=== PATIENT | female | born 1960 | race Caucasian/White ===

== ENCOUNTER 2017-09-16 19:06 | Inpatient (IN) | payer MEDICARE, OTHER ==
[~2017-09-16] VITALS: Ht 157.4 cm; Wt 94.1 kg
--- NOTE | ~2017-09-16 | PR ---
[place], [place] PROGRESS NOTE NAME: MARYANNE AGUILAR UNIT #: [id number] ROOM: 310 DOCTOR: SELAM AZUL MD BIRTHDATE: [birth year] DOS: 09/19/2017 CHIEF COMPLAINT: "I feel a little bit better, but look at my hands, they have been shaking like this even before I came to the hospital." SUMMARY OF THE VISIT: The patient was then interviewed in the dining area. She had eaten her entire breakfast and was sitting there, interacting with female peers and watching television. She engaged readily in conversation, reporting that she did sleep better last night and she is feeling slightly better. She does notice bilateral upper extremity tremors that are pretty noticeable especially when she grabbed her drink and attempted to bring it to her mouth. She reported that these were occurring well before her admission here to the hospital and have been somewhat problematic for her. MENTAL STATUS: She is alert and oriented. Mood does seem to be trending towards euthymia. Affect is more appropriate. There are no symptoms of hypomania or moni. There are no overt auditory or visual hallucinations. Memory for the most part is intact. PLAN: I will discontinue her hydroxyzine in an attempt to begin to simplify her drug regimen. I will add Artane 2 mg t.i.d. to decrease the tremors and check a valproic acid level in the morning to ensure that it is therapeutic. We will engage in individual and beatty milieu activity with the plan to return to the least restrictive environment when psychiatrically stable. SELAM AZUL MD CM:PNTRANS [id number] SELAM AZUL MD 09/19/17 1446 interface
--- NOTE | ~2017-09-16 | PR ---
[place], [place] PROGRESS NOTE NAME: MARYANNE AGUILAR UNIT #: [id number] ROOM: 310 DOCTOR: SELAM AZUL MD BIRTHDATE: [birth year] DOS: 09/20/2017 CHIEF COMPLAINT: "Will you give me my nerve medicine back when I go back to [facility]." SUMMARY OF THE VISIT: Patient was interviewed in the dining area where she sat with female peers watching television. She stopped and engaged in conversation. She was calm, collected and very much euthymic. She reports she feels 100% better now and does not need the nerve medicine here. She traces a lot of her nerves to the situation there and is requesting that when she goes back to [facility], [facility] because it is quieter there and she is hopeful that that will help her nerves in the long run. She is tolerating the current medication regimen now and did tolerate me discontinuing her nerve medicine without incident. MENTAL STATUS: She is alert and oriented with mild time gaps. She is fairly euthymic. There is no hypomania or moni. There are no overt auditory or visual hallucinations. No delusions, no paranoia. Memory is fully intact. PLAN: Valproic acid level is therapeutic at 80.3. I will maintain her current psychotropic regimen, engage in individual and beatty milieu activity with the plan to return to [facility] when stable. SELAM AZUL MD CM:PNTRANS [id number] SELAM AZUL MD 09/21/17 0048 interface
--- NOTE | ~2017-09-16 | WRIGHTHP ---
[place], [place] PATIENT HISTORY AND PHYSICAL EXAM NAME: MARYANNE AGUILAR UNIT #: [id number] ROOM: 310 DOCTOR: SELAM GÓMEZ MD BIRTHDATE: [birth year] DOS: 09/18/2017 CHIEF COMPLAINT: "Oh Dr. Gómez, I had just not been doing well." HISTORY OF PRESENT ILLNESS: This is a 57-year-old white female known to me from her stay at [facility]. The patient has a lengthy history of bipolar disorder as well as mild mental retardation. The patient has become increasingly more hypomanic or manic at the home, becoming increasingly intrusive, being hyperverbal. She has also been increasingly more agitated and irritable and has made multiple threats to staff, other residents and also herself. She has threatened suicide and has threatened to hurt other residents. Her behavior has become so problematic at the group home that the staff there fear for her safety and the safety of other residents. Given the severity of her decompensation, it was felt that an inpatient stay was warranted and she was admitted now to rule out organic factors and to attempt to stabilize on medication. PAST MEDICAL HISTORY: Remarkable for bipolar disorder, mild MR, obesity. MENTAL STATUS: Upon admission, the patient is alert and oriented. Mood does seem to be somewhat labile. She is very hyperverbal, almost to the point of pressured, but redirectable. She is somewhat circumstantial in her speech. There are no overt auditory or visual hallucinations. No delusions, no paranoia. Short term memory, intermediate memory and long-term memory are intact. DIAGNOSIS: Bipolar type 1, mixed, and mild mitral regurgitation. PLAN: I will discontinue her Zyprexa given the fact that she is already obese and the Zyprexa will put her at risk for metabolic syndrome. I will start her on Invega 6 mg in the morning and consider switching her to Invega Sustenna to improve compliance. Screening examinations upon admission show her to have a low vitamin D level, so I will treat her with vitamin D 50,000 international units weekly. We will attempt to engage her in individual and beatty milieu activities with the ultimate plan to return back to [facility] when psychiatrically stable. [place], [place] PATIENT HISTORY AND PHYSICAL EXAM NAME: MARYANNE AGUILAR UNIT #: [id number] ROOM: 310 DOCTOR: SELAM GÓMEZ MD BIRTHDATE: [birth year] SELAM GÓMEZ MD CM:HISPHYS:PATIENT HISTORY AND PHYSICAL EXAMINATION 8 SELAM GÓMEZ MD 09/18/17908 interface
--- NOTE | ~2017-09-16 | DS ---
[place], [place] DISCHARGE SUMMARY NAME[id number] UNIT #: [id number] ROOM: 310 DOCTOR: SELAM GÓMEZ MD BIRTHDATE: [birth year] DOS: 09/21/2017 CHIEF COMPLAINT: "Oh Dr. Gómez, I just have not been doing well." HISTORY OF PRESENT ILLNESS: This is a 57-year-old white female known to me from her stay at [facility]. The patient has a lengthy history of bipolar disorder as well as mild mental retardation. The patient has become increasingly more hypomanic and manic at the home, being very intrusive and hyperverbal. She has also been more agitated and irritable and has made multiple threats to hurt staff and other residents there. She most recently has been threatening suicide as well and threatened to hurt other residents before she would hurt herself as well. Her behavior has become so problematic at the alf that the staff there fear for her safety as well as the safety of other residents. She is admitted now to the [facility] to rule out organic factors and attempt to stabilize on medication. PAST MEDICAL HISTORY: Remarkable for bipolar disorder, mild MR and obesity. SUMMARY OF HOSPITAL COURSE: The patient was admitted to the unit where her Zyprexa was discontinued due to ineffectiveness and she was started on Invega 6 mg in the morning. Routine screening examination showed her to have a low vitamin D level, so she was started on vitamin D 50,000 International Units weekly. A check of her valproic acid level showed her a valproic acid level to be therapeutic at 80.3. She tolerated the Invega well and it did have a rather rapid and robust effect. She did develop some mild upper extremity tremor from it and Artane 2 mg 3 times daily was added to offset the extrapyramidal symptoms. This worked rather rapidly. She had a very rapid and robust response from the medicines. Sleep and appetite normalized. She became very pleasant and cooperative. She engaged readily in activities and group therapy. She voiced positive plans for returning back to [facility]. She convincingly denied medication side effects as well as convincingly denied suicidal thoughts, homicidal thoughts or any self-injurious thoughts. The patient was discharged then back to [facility] where I will follow her upon her readmission there. MENTAL STATUS AT DISCHARGE: The patient was alert and oriented to person, place, and time. Mood was euthymic. Affect appropriate. There were no symptoms of moni or hypomania. There were no overt auditory or visual hallucinations. No delusions were voiced. No paranoia was present. Short, intermediate, and long-term memory were grossly intact. DIAGNOSES AT DISCHARGE: Schizoaffective disorder and mild mental retardation. PLAN: All of her prescriptions have been E-scribed to [facility], her institutional pharmacy. She will return to [facility]. I will follow her upon her readmission there. [place], [place] DISCHARGE SUMMARY NAME: MARYANNE AGUILAR UNIT #: [id number] ROOM: 310 DOCTOR: SELAM GÓMEZ MD BIRTHDATE: [birth year] SELAM GÓMEZ MD CM:DISCHARG 3 7 SELAM GÓMEZ MD 09/21/17837 interface
[2017-09-17] MEDS ORDERED: COLACE100 MG PO (04:19)
[2017-09-17] MEDS ORDERED: DEPAKOTE DR500 MG PO ×2 (04:20→04:21)
[2017-09-17] MEDS ORDERED: ZYPREXA10 M1 PO ×2 (04:20→04:22)
[2017-09-17] MEDS ORDERED: REMERON15 M2 PO (04:23)
[2017-09-17] MEDS ORDERED: VISTARIL50 MG PO (04:25)
[2017-09-17 12:35] VITALS: BP 126/58
[2017-09-17 12:53] VITALS: BP 126/58
[2017-09-17 20:00] VITALS: BP 125/62
[2017-09-18 05:47] LABS: BASO # 0.1 10*3/uL (0.0-0.1); EOS # 0.7 10*3/uL (0.0-0.4); EOS % 12.2 % (1.0-4.0); HEMATOCRIT 40.8 % (37.0-47.0); LYMPH # 2.3 10*3/uL (1.3-4.4); LYMPH % 39.4 % (27.0-41.0); MEAN CELL VOLUME 89.5 fl (81.0-99.0); MEAN CORPUSCULAR HGB 28.5 pg (27.0-31.0); MEAN CORPUSCULAR HGB CONC 31.9 g/dl (33.0-37.0); MEAN PLATELET VOLUME 11.9 fl (9.6-12.3); MONO # 0.7 10*3/uL (0.1-1.0); MONO % 11.4 % (3.0-9.0); NEUT # 2.1 10*3/uL (2.3-7.9); NEUT % 35.5 % (47.0-73.0); PLATELET COUNT AUTOMATED 169 10*3/uL (130-400); RED BLOOD COUNT 4.56 10*6/uL (4.10-5.10); RED CELL DISTRI WIDTH 13.8 % (0-14.5); WHITE BLOOD COUNT 5.9 10*3/uL (4.8-10.8)
[2017-09-18 05:49] LABS: ALBUMIN 3.3 gm/dl (3.1-4.5); ALKALINE PHOSPHATASE 72 U/L (45-117); BUN 15 mg/dl (7-24); CHLORIDE 105 mmol/L (98-107); CHOLESTEROL 166 mg/dL (<200); HDL CHOLESTEROL 76 mg/dl (40-60); LDL CHOLESTEROL 75 mg/dL (9-159); POTASSIUM 3.8 mmol/L (3.5-5.1); SGOT/AST 16 IU/L (3-35); SGPT/ALT 27 U/L (12-78); SODIUM 144 mmol/L (136-145); TOTAL PROTEIN 6.7 gm/dL (6.4-8.2); TRIGLYCERIDES 73 mg/dl (<150); VLDL CHOLESTEROL 15 mg/dL (6-40)
[2017-09-18 07:48] LABS: VITAMIN D, 25-HYDROXY 15.9 ng/mL (30-100)
[2017-09-18 07:55] VITALS: BP 133/80
[2017-09-18 11:37] LABS: BILIRUBIN NEGATIVE (NEGATIVE); BLOOD NEGATIVE (NEGATIVE); CLARITY CLEAR (CLEAR); COLOR YELLOW (YELLOW); GLUCOSE NEGATIVE (NEGATIVE); KETONE TRACE (NEGATIVE); LEUKO ESTERASE TRACE (NEGATIVE); NITRITE NEGATIVE (NEGATIVE); PH 6.5 (5.0-9.0)
[2017-09-18 12:40] LABS: BACTERIA 1+; MUCOUS 1+
[2017-09-18 20:00] VITALS: BP 150/87
[2017-09-19 07:55] VITALS: BP 137/78
[2017-09-19 20:03] VITALS: BP 152/84
[2017-09-20 07:57] VITALS: BP 128/77
[2017-09-20 20:00] VITALS: BP 117/78
[2017-09-21] MEDS ORDERED: DIVALPROEX SOD500 MG PO ×2 (07:59)
[2017-09-21] MEDS ORDERED: DIVALPROEX SOD250 MG PO (07:59)
[2017-09-21] MEDS ORDERED: TRIHEXYPHENIDYL2 M3 PO (07:59)
[2017-09-21] MEDS ORDERED: PALIPERIDONE ER6 MG PO (07:59)
[2017-09-21] MEDS ORDERED: Vitamin D PO (07:59)
[2017-09-21] MEDS ORDERED: MIRTAZAPINE15 M2 PO (07:59)
[2017-09-21 08:01] VITALS: BP 147/76
== END 2017-09-21 17:10 | disposition home or self-care (01) | DRG 885 ==
LOC: 3N 19:06
PROVIDERS: Psychiatry & Neurology Psychiatry
DX: F25.9 Schizoaffective disorder, unspecified (principal); N30.00 Acute cystitis without hematuria; F23 Brief psychotic disorder; B95.1 Streptococcus, group B, as the cause of diseases classified elsewhere; F31.60 Bipolar disorder, current episode mixed, unspecified; G25.1 Drug-induced tremor; T43.595A Adverse effect of other antipsychotics and neuroleptics, initial encounter; Y92.238 Other place in hospital as the place of occurrence of the external cause; E66.9 Obesity, unspecified; Z68.37 Body mass index [BMI] 37.0-37.9, adult; I34.0 Nonrheumatic mitral (valve) insufficiency; K59.00 Constipation, unspecified; F79 Unspecified intellectual disabilities; F41.9 Anxiety disorder, unspecified; Z82.5 Family history of asthma and other chronic lower respiratory diseases; Z82.0 Family history of epilepsy and other diseases of the nervous system; Z85.828 Personal history of other malignant neoplasm of skin; Z79.899 Other long term (current) drug therapy

== ENCOUNTER 2017-10-05 15:59 | Inpatient (IN) | payer MEDICARE, OTHER ==
[~2017-10-05] VITALS: Ht 157.4 cm; Wt 93.4 kg
--- NOTE | ~2017-10-05 | WRIGHTHP ---
[place], [place] PATIENT HISTORY AND PHYSICAL EXAM NAME: [id number] UNIT #: [id number] ROOM: 311 DOCTOR: SELAM GÓMEZ MD BIRTHDATE: [birth year] DOS: 10/06/2017 CHIEF COMPLAINT: "I hated there Dr. Gómez, they made me have a roommate." HISTORY OF PRESENT ILLNESS: This is a 57-year-old white female known to me from her previous admission here to the [facility] unit as well as her stay at [facility]. The patient returned back to [facility] after a brief stint here at the hospital. Since her readmission to [facility], the patient has continued to spiral out of control. She has been yelling nonstop, yelling at staff as well as other residents. She has been hitting, kicking, spitting, and biting people. She is making increased demands to have her own room. The usp has attempted to intervene utilizing nonpharmacologic means of intervention as well as p.r.n. intervention, but to no avail. The patient continues to represent a significant harm to self and others and is admitted now to rule out organic factors to stabilize on medication and to engage in individual and beatty milieu activity. PAST MEDICAL HISTORY: Remarkable for mild MR, obesity and a long history of bipolar disorder. MENTAL STATUS: Upon admission, the patient is alert and oriented with some time gaps. Mood seems to be labile. Affect inappropriate. There is a bit of pressured speech noted how much of this is true moni versus her MR is unclear. The patient does not have any auditory or visual hallucinations, delusions or paranoia. Short-term memory has mild gaps, otherwise she is fully intact. DIAGNOSIS: Bipolar type 1 mixed, and mild MR. PLAN: I have already started her on Ativan 1 mg q.i.d. and Geodon 20 mg b.i.d., which I will now increase to 40 mg b.i.d. with a target of 80 mg b.i.d. I will change her Depakote to 500 mg 3 times a day to further attempt to stabilize her mood. Quite frankly I am unclear if this is true bipolar disorder versus a behavioral manifestation of her mental retardation. We will monitor her closely. If this becomes an issue related to MR, we will make certain that the usp put into effect a behavioral management plan to more effectively deal with this type of behavior. We will discharge to the least restrictive environment when psychiatrically stable. [place], [place] PATIENT HISTORY AND PHYSICAL EXAM NAME: MARYANNE AGUILAR UNIT #: [id number] ROOM: [facility] DOCTOR: SELAM GÓMEZ MD BIRTHDATE: [birth year] SELAM GÓMEZ MD CM:HISPHYS:PATIENT HISTORY AND PHYSICAL EXAMINATION [id number] SELAM GÓMEZ MD 10/06/17 1027 interface
--- NOTE | ~2017-10-05 | PR ---
[place], [place] PROGRESS NOTE NAME: [facility]ILAR [id number] UNIT #: [id number] ROOM: 311 DOCTOR: SELAM GÓMEZ MD BIRTHDATE: [birth year] DOS: 10/07/2017 CHIEF COMPLAINT: "Dr. Gómez, am I going to be going soon." SUMMARY OF THE VISIT: The patient was interviewed in the dining area. She was bright, pleasant upon approach, which she has been since she has been here. Of note, she has not exhibited the mood lability, the yelling, the screaming, the spitting, the hitting, the kicking and the behaviors that led to her being readmitted. I truly believe that the behaviors that were occurring at [facility] were nothing but volitional on her part because she wanted to leave the facility. I confronted her on her behavior and did discuss with her how the process works and that it needed to be clearly documented in her charts that her behaviors were under control for her effort to be going to another facility. She nodded in agreement. MENTAL STATUS: She is alert and oriented with some time gaps. Mood was fairly euthymic. Affect appropriate. There are no symptoms of hypomania or moni. There were no overt auditory or visual hallucinations noted. Short-term memory has mild gaps, otherwise she is intact. PLAN: I will check a valproic acid level in the morning to ensure that it is therapeutic. I will raise her Geodon from 40 mg twice a day to 80 mg twice a day. Continue to support and monitor. My plan is to discharge her back to [facility] on . Again, I would reiterate that her behaviors seem exactly that, volitional behavior that she was doing in order to get out of [facility] and come back to the hospital. Her behavior here has been exemplary. She has not been showing mood lability. She has not been showing any psychosis and she has not been agitated or aggressive in any shape or manor. I think it is best at this point that she return to [facility], set up a behavioral management plan with her there to prevent her from continuing to manipulate the system. SELAM GÓMEZ MD CM:YESSENIA [id number] SELAM GÓMEZ MD 10/07/17 1239 interface
--- NOTE | ~2017-10-05 | DS ---
[place], [place] DISCHARGE SUMMARY NAME: MARYANNE AGUILAR [facility] #: [id number] UNIT #: [id number] ROOM: 311 DOCTOR: SELAM AZUL MD BIRTHDATE: [birth year] DOS: 10/08/2017 CHIEF COMPLAINT: "I hated that place Dr. Azul, they made me have a roommate" HISTORY OF PRESENT ILLNESS: This is a 57-year-old white female known to me from a previous admission here to the [facility] unit as well as her stay at [facility]. The patient recently returned back to [facility] and had a brief stint there before being readmitted to the hospital. Since her readmission to [facility], she has continued to spiral out of control. Per their report, she has been yelling nonstop. She has been throwing things. She has been breaking things. She has been hitting, kicking, spitting and biting people. She is making increased demands to have her own room and when she does not get her way, she throws a temper tantrum. They have attempted to utilize nonpharmacologic means to intervene unsuccessfully and even p.r.n. intervention has been unsuccessful. She is readmitted now to rule out any organic factors, to rule out the possibility of psychosis and moni, to engage in individual and beatty milieu activity, returning back to [facility] or similar placement when stable. PAST MEDICAL HISTORY: Remarkable for mild mental retardation, obesity and now a questionable history of bipolar disorder. SUMMARY OF HOSPITAL COURSE: The patient was admitted to the unit where she was started on Geodon 40 mg twice daily. She was maintained on Depakote, but the dose was adjusted to 500 mg 3 times daily. Of note, immediately upon entering the unit, the patient was bright, pleasant and cooperative. She did not exhibit moni, hypomania. There were no auditory or visual hallucinations. There was no paranoia. There were no delusions. The patient was very pleasant throughout her early part of her stay enjoying the unit milieu and the attention that was given . The minute we began talking about discharge, she began to escalate and made threats and predicted that she would act out and did so. When we very sternly and forcefully redirected, she would redirect well and stay in control. Of note was that this was all volitional. There was no symptom suggestive of moni or psychosis. There was no depression. Her behavior was totally under her control and she was able to self-redirect when need be, or redirected with our tirado redirection. The patient was discharged back to [facility] to have further followup and I would recommend that a psychologist be consulted to set up a behavioral management plan to help her be able to meet the demands that were met for her. MENTAL STATUS AT DISCHARGE: The patient was alert and oriented to person, place, and time. Mood was fairly euthymic and when it was not, it was under her control. There was no symptom suggestive of depression. There were no neurovegetative symptoms. Sleep and appetite were normal. There was no hypomania or moni. Speech rate and pattern for the most part were normal. There were no auditory or visual hallucinations. No delusions, no paranoia. Memory for the most part was intact. FINAL DIAGNOSES: Intermittent explosive disorder, mild mental retardation. [place], [place] DISCHARGE SUMMARY NAME: MARYANNE AGUILAR [facility] #: [id number] UNIT #: [id number] ROOM: 311 DOCTOR: SELAM AZUL MD BIRTHDATE: [birth year] PLAN: The patient will be sent back to [facility] where I would again recommend that a very strong behavioral plan be implemented. I think the current system is allowing her to run rampant and she is able then to pretty much control the situation. I would strongly recommend that future hospitalizations are limited as this is further feeding in to her behavior. At this point, she will be returned back to [facility]. All of her prescriptions have been submitted to [facility], her institutional pharmacy. SELAM AZUL MD CM:DISCHARG [id number] SELAM AZUL MD 10/08/1715 interface
[~2017-10-05 15:59] MED LIST: COLACE100 MG PO; DEPAKOTE DR500 MG PO; DIVALPROEX SOD250 MG PO; DIVALPROEX SOD500 MG PO; MIRTAZAPINE15 M2 PO; PALIPERIDONE ER6 MG PO; REMERON15 M2 PO; TRIHEXYPHENIDYL2 M3 PO; VISTARIL50 MG PO; Vitamin D PO; ZYPREXA10 M1 PO
[2017-10-05] MEDS ORDERED: TYLENOL325 M2 PO (16:13)
[2017-10-05] MEDS ORDERED: ATIVAN1 MG PO (16:14)
[2017-10-05] MEDS ORDERED: ATIVAN2 MG/1 ML IM (16:14)
[2017-10-05] MEDS ORDERED: DULCOLAX5 M1 PO (16:16)
[2017-10-05] MEDS ORDERED: CHLORPROMAZINE50 M1 PO (16:17)
[2017-10-05] MEDS ORDERED: GEODON20 MG IM (16:17)
[2017-10-05] MEDS ORDERED: WATER FOR INJECT5 ML IM (16:18)
[2017-10-05] MEDS ORDERED: GERI-TUSSIN DM473 ML PO (16:21)
[2017-10-05] MEDS ORDERED: MOM30 M1 PO (16:22)
[2017-10-05] MEDS ORDERED: MAALOX ADVANCE355 M1 PO (16:22)
[2017-10-05] MEDS ORDERED: MIRALAX POWDER17 G1 PO (16:23)
[2017-10-05 18:08] VITALS: BP 146/82
[2017-10-05 20:00] VITALS: BP 145/66
[2017-10-06 07:38] LABS: BASO # 0.1 10*3/uL (0.0-0.1); EOS # 0.3 10*3/uL (0.0-0.4); EOS % 4.9 % (1.0-4.0); HEMATOCRIT 42.5 % (37.0-47.0); HEMOGLOBIN 13.4 g/dl (12.0-16.0); MEAN CELL VOLUME 90.4 fl (81.0-99.0); MEAN CORPUSCULAR HGB 28.5 pg (27.0-31.0); MEAN CORPUSCULAR HGB CONC 31.5 g/dl (33.0-37.0); MEAN PLATELET VOLUME 12.4 fl (9.6-12.3); MONO # 0.6 10*3/uL (0.1-1.0); MONO % 8.6 % (3.0-9.0); NEUT # 2.8 10*3/uL (2.3-7.9); NEUT % 41.2 % (47.0-73.0); PLATELET COUNT AUTOMATED 200 10*3/uL (130-400); RED CELL DISTRI WIDTH 14.1 % (0-14.5); WHITE BLOOD COUNT 6.8 10*3/uL (4.8-10.8)
[2017-10-06 07:54] VITALS: BP 111/66
[2017-10-06 08:06] LABS: ALBUMIN 3.5 gm/dl (3.1-4.5); ALKALINE PHOSPHATASE 65 U/L (45-117); BUN 14 mg/dl (7-24); CHLORIDE 106 mmol/L (98-107); CHOLESTEROL 177 mg/dL (<200); CREATININE 0.91 mg/dL (0.55-1.02); HDL CHOLESTEROL 79 mg/dl (40-60); LDL CHOLESTEROL 84 mg/dL (9-159); SGOT/AST 10 IU/L (3-35); SGPT/ALT 17 U/L (12-78); SODIUM 144 mmol/L (136-145); TRIGLYCERIDES 71 mg/dl (<150); VLDL CHOLESTEROL 14 mg/dL (6-40)
[2017-10-06 09:43] LABS: VITAMIN D, 25-HYDROXY 31.9 ng/mL (30-100)
[2017-10-06 20:00] VITALS: BP 119/79
[2017-10-07 07:59] VITALS: BP 129/74
[2017-10-07 20:00] VITALS: BP 123/56
[2017-10-08 07:47] VITALS: BP 124/76
[2017-10-08] MEDS ORDERED: MIRTAZAPINE15 M2 PO (08:43)
[2017-10-08] MEDS ORDERED: TRIHEXYPHENIDYL2 M3 PO (08:43)
[2017-10-08] MEDS ORDERED: THORAZINE25 MG PO (08:43)
[2017-10-08] MEDS ORDERED: DIVALPROEX SOD500 MG PO (08:43)
[2017-10-08] MEDS ORDERED: LORAZEPAM2 MG PO (08:48)
[2017-10-08] MEDS ORDERED: ZIPRASIDONE HCL80 M1 PO (08:55)
== END 2017-10-08 15:49 | disposition home or self-care (01) | DRG 884 ==
LOC: 3N 15:59
PROVIDERS: Psychiatry & Neurology Psychiatry
DX: F70 Mild intellectual disabilities (principal); E66.9 Obesity, unspecified; F23 Brief psychotic disorder; F63.81 Intermittent explosive disorder; F31.60 Bipolar disorder, current episode mixed, unspecified; Z82.5 Family history of asthma and other chronic lower respiratory diseases; Z79.899 Other long term (current) drug therapy

== ENCOUNTER 2018-01-01 19:52 | Inpatient (IN) | payer MEDICARE, OTHER ==
[~2018-01-01] VITALS: Ht 157.4 cm; Wt 97.5 kg
--- NOTE | ~2018-01-01 | DS ---
[place], [place] DISCHARGE SUMMARY NAME[id number] UN[facility] #: [id number] ROOM: 317 DOCTOR: SELAM AZUL MD BIRTHDATE: [birth year] DOS: 01/07/2018 CHIEF COMPLAINT: "I need to get more money, they would not give me my money, so I got upset." HISTORY OF PRESENT ILLNESS: This is a 57-year-old white female well known to me from her previous admission here to the [facility] as well as her stay at [facility]. After her last psychiatric hospitalization here, the patient returned to [facility] briefly. She was later placed into a senior living. At that point in time, she found the senior living to be deplorable and acted out there, resulting in her being hospitalized at [facility] for a lengthy time. After she was restabilized there, she was subsequently discharged to [facility]. She was only at [facility] a short time when she once again acted out becoming verbally and physically aggressive toward staff and other residents. Because of this significant risk for harm to self and others, the patient was readmitted now to the [facility] to further evaluate, stabilize on medication and determine the least restrictive environment. Most recently, she has been prescribed Depakote 500 mg b.i.d. and 1250 mg at bedtime, Remeron 15 mg at bedtime, BuSpar 10 mg 3 times a day, Geodon 80 mg 3 times a day, Ativan 1 mg 3 times a day, Vistaril 50 mg 3 times a day and Zyprexa 10 mg twice daily. Despite this plethora of pharmacologic management, the patient continues to spiral out of control. As mentioned previously, she is admitted to the [facility] to rule out any organic factors, to stabilize on medication, returning to the least restrictive environment when psychiatrically stable. PAST MEDICAL HISTORY: Remarkable for an ovarian cyst, congestive heart failure and appendicitis. SOCIAL HISTORY: The patient has no history of drug or alcohol abuse. She does not smoke cigarettes. STRENGTHS: The patient is ambulatory and has good verbal skills. SUMMARY OF HOSPITAL COURSE: The patient was admitted to the unit where screening examinations revealed her to have an elevated serum ammonia level of 70, so she was started on Chronulac 20 grams twice daily. Despite having a Depakote level that was high therapeutic at 115.6, she continued to show symptoms. For this reason, Depakote was discontinued, Remeron was discontinued, BuSpar was discontinued, Geodon was discontinued, Zyprexa was discontinued, Vistaril was discontinued, Ativan was increased to 1 mg 4 times a day and she was started on Thorazine 50 mg 3 times a day, subsequently increasing to 50 mg 4 times a day. Invega 6 mg in the morning was added also as an antipsychotic that would help stabilize mood. With this simplified drug regimen, the patient's behavior improved. She no longer became wildly labile, she was not making threats to others and she had improved sufficiently to return to [facility]. MENTAL STATUS AT DISCHARGE: The patient is alert and oriented. Mood does seem to be more euthymic. Affect is more appropriate. There is no moni, hypomania [place], [place] DISCHARGE SUMMARY NAME: MARYANNE AGUILAR [facility] #: [id number] UNIT #: [id number] ROOM: [facility] DOCTOR: SELAM AZUL MD BIRTHDATE: [birth year] or psychosis. Memory for the most part is intact. DISCHARGE DIAGNOSIS: Schizoaffective disorder. PLAN: The patient will be admitted to [facility]. She is medically stable, psychiatrically stable and her biopsychosocial needs will adequately being met by the facility. I would suggest that the facility psychologist be consulted immediately on this case to help set up a behavioral management plan to help her control her behaviors. I will follow her upon her admission to [facility]. SELAM AZUL MD CM:DISCHARG SELAM AZUL MD 01/07/1846 interface
--- NOTE | ~2018-01-01 | WRIGHTHP ---
[place], [place] PATIENT HISTORY AND PHYSICAL EXAM NAME: MARYANNE AGUILAR UNIT #: [id number] ROOM: 317 DOCTOR: SELAM AZUL MD BIRTHDATE: [birth year] DOS: 01/03/2018 PSYCHIATRIC EVALUATION CHIEF COMPLAINT: "I needed to get more money; they wouldn't give me money, so I got upset." HISTORY OF PRESENT ILLNESS: This is a 57-year-old white female known to me from a previous admission here to the [facility] as well as her stay at [facility]. After her last psychiatric hospitalization, the patient returned to [facility]; however, she was later placed into a care home. She found the care home absolutely deplorable and acted out there, resulting in her being hospitalized at [facility] for some time. When she was stabilized there, the patient was then subsequently discharged back into a prison, this time [facility]. Most recently, she has been on a complicated cocktail of Depakote 500 mg b.i.d. and 1250 mg at bedtime, Remeron 15 mg at bedtime, BuSpar 10 mg 3 times daily, Geodon 80 mg twice daily, Zyprexa 10 mg twice daily, Ativan 1 mg 3 times daily, Vistaril 50 mg 3 times daily. Despite that plethora of psychotropic medication, the patient continued to exhibit marked mood lability. She has been verbally and physically threatening to staff and other patients. She has been wildly out of control, putting herself and others at risk for harm. She is subsequently admitted now to rule out organic factors, to attempt to stabilize on medication, returning then to the least restrictive environment when stable. PAST MEDICAL HISTORY: Remarkable for history of ovarian cyst, heart failure and appendicitis. The patient has no history of substance abuse. She does not smoke cigarettes, nor does she drink alcohol. STRENGTHS: The patient is ambulatory and has good verbal skills. MENTAL STATUS: The patient is alert and oriented with time gaps. Mood does seem to be wildly labile. Affect is inappropriate. She jumps from topic to topic and has a hard time staying focused. She endorses positive suicidal and homicidal ideation. There are no gross psychotic symptoms. Memory for the most part is intact. DIAGNOSIS: Schizoaffective disorder. PLAN: I have dramatically changed her medication regimen. Despite being on these medicines, she is still symptomatic. Her valproic acid level is therapeutic. In fact, high therapeutic at 115.6, so I have discontinued the Depakote. Her serum ammonia level is elevated to 70. Whether this is on the basis of the Depakote alone or other factors it is unclear. I have discontinued her BuSpar, her Remeron, her Vistaril, her Geodon and Zyprexa, instead I have maintained her on Ativan 1 mg t.i.d., which I will now increase to 1 mg 4 times a day. I will increase her Thorazine to 50 mg 4 times a day. The hospitalists have started her on very low dose lactulose. I will go ahead and increase this to 30 grams b.i.d. in an attempt to bring the serum ammonia level down. We will keep her on Invega and consider utilizing an Invega Sustenna injection to [place], [place] PATIENT HISTORY AND PHYSICAL EXAM NAME: MARYANNE AGUILAR UNIT #: [id number] ROOM: [facility] DOCTOR: SELAM AZUL MD BIRTHDATE: [birth year] improve compliance. We will engage her in individual and beatty milieu activity with the plan to return to the least restrictive environment when stable. SELAM AZUL MD CM:HISPHYS:PATIENT HISTORY AND PHYSICAL EXAMINATION [id number] SELAM AZUL MD 01/03/18 1125 interface
--- NOTE | ~2018-01-01 | PR ---
[place], [place] PROGRESS NOTE NAME: MARYANNE AGUILAR UNIT #: [id number] ROOM: 317 DOCTOR: PHUONG FROST DO BIRTHDATE: [birth year] DOS: 01/05/2018 CHIEF COMPLAINT: "I want to go home, when am I going home?" SUMMARY OF VISIT: The patient is a 57-year-old female who was admitted to the [facility] for schizoaffective disorder, currently on hospital day #3 with persistent anxiety, but improved mood. The patient was readily engaged in conversation and was interviewed in the dining room. She reports she likes her current housing situation, but is willing to try a new facility. She was concerned and anxious about someone stealing her stuff at . She was reassured that we would do whatever was possible to ensure that her possessions would remain with her during her move to a new facility. She voiced understanding and did not voice any other complaints. MENTAL STATUS EXAMINATION: The patient is alert and oriented to person and place. Her mood is improved; however, she appears to be anxious. There are gaps in her short-term memory, which have been improving over time. PLAN: 1. Continue psychotropic regimen as the patient is currently tolerating this therapy well. 2. Lactulose was increased to 30 grams p.o. b.i.d. Hospitalist internal medicine team is managing all other medical conditions. 3. Disposition; the patient to be discharged 01/07/2018 to [facility] per guardian request. We will continue to engage the patient in individual and beatty milieu activity, returning to the least restrictive environment when psychiatrically stable. Phuong Frost, DO SELAM AZUL MD CM:PNTRANS 23 PHUONG FROST DO 01/05/182021 interface
--- NOTE | ~2018-01-01 | PR ---
[place], [place] PROGRESS NOTE NAME: MARYANNE AGUILAR UNIT #: [id number] ROOM: 317 DOCTOR: PHUONG FROST DO BIRTHDATE: [birth year] DOS: 01/06/2018 CHIEF COMPLAINT: "They are going to steal my blanket." SUMMARY OF VISIT: The patient is a 57-year-old female who was admitted to the [facility] for schizoaffective disorder, currently on hospital day #4 with persistent anxiety and volatile mood. This morning, patient was sitting in her room when we attempted to engage the patient in conversation. She was sitting in a chair with her index fingers resting on her temples with her head down as she stared to the floor. We greeted her; however, she did not make eye contact with us and was nonverbal. She was unwilling to engage in conversation and we left the room. The patient did not seem to be in any distress at that time. A second attempt was made to engage the patient in conversation. She was sitting at a table in the dining room. I greeted her and she resumed to demonstrate an offensive gesture. She raised her middle finger indicating that she did not want to talk at that time. A third attempt was made later that day when the patient was being assessed by the internal medicine hospitalist resident. At that point, the patient said "Dr. Azul is a liar." The resident asked if she was able to speak with Dr. Azul today as she was stating that she wanted to kill herself. The patient stated at that time that "Dr. Azul is not going to do anything for me." At that point, I entered the room. The patient was tearful and lying in bed. She indicated that she was anxious about the facility stealing her belongings. I reassured her that we would do whatever would be possible to assist in her transfer to the longterm facility. The patient continues to be paranoid and anxious regarding discharge for tomorrow. Also, this morning, patient was noted to be yelling, slamming doors and being combative with nursing staff. She said she was acting out and was entitled to do so. MENTAL STATUS EXAMINATION: The patient is alert and oriented to person, place and time. Her mood is volatile. She continues to be anxious. She is tearful. Her short-term memory is intact. Her affect is depressed. She continues to demonstrate staff splitting amongst nursing staff and the medical team. PLAN: 1. We will continue psychotropic regimen as the patient is tolerating this therapy well without side effects. 2. The patient currently on lactulose 30 grams p.o. b.i.d. Hospitalist internal medicine team is managing medical condition at this time. 3. Disposition, the patient is to be discharged likely tomorrow, , January 07 to [facility]. Request for transport has been made. We will continue to engage the patient in individual and beatty milieu activity, returning to the least restrictive environment when psychiatrically stable. Phuong Frost DO [place], [place] PROGRESS NOTE NAME: MARYANNE AGUILAR UNIT #: [id number] ROOM: 317 DOCTOR: PHUONG FROST DO BIRTHDATE: [birth year] SELAM AZUL MD CM:YESSENIA [id number] PHUONG FROST DO 01/06/18 1258 interface
--- NOTE | ~2018-01-01 | PR ---
[place], [place] PROGRESS NOTE NAME: MARYANNE AGUILAR UNIT #: [id number] ROOM: 317 DOCTOR: SELAM AZUL MD BIRTHDATE: [birth year] DOS: 01/04/2018 CHIEF COMPLAINT: "I like it at [place], I want to go back, just keep me away from that one man." SUMMARY OF THE VISIT: The patient was interviewed in the dining area. She continues to be rather loud and intrusive, jumping from topic to topic. I did redirect and she did calm eventually. She is tolerating the current medications well. I see no sedation, somnolence, extrapyramidal symptoms or tardive dyskinesia. MENTAL STATUS: She is alert and oriented with time gaps. Mood does seem to be trending towards euthymia. Affect is more appropriate. There is no moni, hypomania or psychosis. Short term memory has gaps, otherwise she is intact. PLAN: I will maintain her current psychotropic regimen, engage in individual and beatty milieu activity, returning to the least restrictive environment when psychiatrically stable. SELAM AZUL MD CM:PNTRANS [id number] SELAM AZUL MD 01/04/18 1015 interface
[~2018-01-01 19:52] MED LIST changes: +ATIVAN1 MG PO; +ATIVAN2 MG/1 ML IM; +CHLORPROMAZINE50 M1 PO; +DULCOLAX5 M1 PO; +GEODON20 MG PO; +GERI-TUSSIN DM473 ML PO; +LORAZEPAM2 MG PO; +MAALOX ADVANCE355 M1 PO; +MIRALAX POWDER17 G1 PO; +MOM30 M1 PO; +THORAZINE25 MG PO; +TYLENOL325 M2 PO; +WATER FOR INJECT5 ML IM; +ZIPRASIDONE HCL80 M1 PO
[2018-01-01] MEDS ORDERED: DEPAKOTE DR500 MG PO ×2 (20:51→21:00)
[2018-01-01] MEDS ORDERED: BUSPIRONE10 MG PO (20:59)
[2018-01-01] MEDS ORDERED: ZYPREXA10 M1 PO (21:03)
[2018-01-01] MEDS ORDERED: ATIVAN1 MG PO (21:11)
[2018-01-01] MEDS ORDERED: BUSPIRONE HCL10 MG PO (21:13)
[2018-01-01] MEDS ORDERED: VISTARIL50 MG PO (21:17)
[2018-01-02] MEDS ORDERED: BUSPAR5 MG PO (13:14)
[2018-01-02] MEDS ORDERED: REMERON15 M2 PO (13:15)
[2018-01-02] MEDS ORDERED: GEODON80 MG PO (13:27)
[2018-01-02] MEDS ORDERED: ZYPREXA10 M1 PO (13:28)
[2018-01-02] MEDS ORDERED: VISTARIL50 MG PO (13:30)
[2018-01-02 15:03] VITALS: BP 138/70
[2018-01-02 15:38] LABS: BASO # 0.1 10*3/uL (0.0-0.1); BASO % 1.1 % (0.0-1.0); EOS # 0.3 10*3/uL (0.0-0.4); EOS % 4.1 % (1.0-4.0); HEMATOCRIT 42.4 % (37.0-47.0); HEMOGLOBIN 13.5 g/dl (12.0-16.0); LYMPH # 2.9 10*3/uL (1.3-4.4); LYMPH % 38.1 % (27.0-41.0); MEAN CELL VOLUME 91.4 fl (81.0-99.0); MEAN CORPUSCULAR HGB 29.1 pg (27.0-31.0); MEAN CORPUSCULAR HGB CONC 31.8 g/dl (33.0-37.0); MEAN PLATELET VOLUME 11.6 fl (9.6-12.3); MONO # 0.7 10*3/uL (0.1-1.0); MONO % 9.4 % (3.0-9.0); NEUT # 3.6 10*3/uL (2.3-7.9); NEUT % 46.9 % (47.0-73.0); PLATELET COUNT AUTOMATED 179 10*3/uL (130-400); RED BLOOD COUNT 4.64 10*6/uL (4.10-5.10); RED CELL DISTRI WIDTH 14.3 % (0-14.5); WHITE BLOOD COUNT 7.6 10*3/uL (4.8-10.8)
[2018-01-02 16:01] LABS: ALBUMIN 3.5 gm/dl (3.1-4.5); CREATININE 1.19 mg/dL (0.55-1.02); POTASSIUM 3.7 mmol/L (3.5-5.1)
[2018-01-02 16:07] LABS: THYROID STIM HORMONE (HS) 2.94 uIU/ml (0.358-4.75)
[2018-01-02 16:09] LABS: VITAMIN D, 25-HYDROXY 25.2 ng/mL (30-100)
[2018-01-02 16:19] LABS: BILIRUBIN NEGATIVE (NEGATIVE); BLOOD NEGATIVE (NEGATIVE); CLARITY CLEAR (CLEAR); COLOR YELLOW (YELLOW); GLUCOSE NEGATIVE (NEGATIVE); KETONE TRACE (NEGATIVE); LEUKO ESTERASE TRACE (NEGATIVE); NITRITE NEGATIVE (NEGATIVE); PH 6.5 (5.0-9.0); SPECIFIC GRAVITY 1.015 (1.005-1.030)
[2018-01-02 16:30] LABS: BACTERIA TRACE
[2018-01-02 16:32] LABS: MUCOUS TRACE
[2018-01-02 20:44] VITALS: BP 132/70
[2018-01-03 06:02] LABS: ALBUMIN 3.2 gm/dl (3.1-4.5); BUN 22 mg/dl (7-24); CHLORIDE 107 mmol/L (98-107); CHOLESTEROL 164 mg/dL (<200); CREATININE 1.05 mg/dL (0.55-1.02); POTASSIUM 4.1 mmol/L (3.5-5.1); SGOT/AST 11 IU/L (3-35); SGPT/ALT 18 U/L (12-78); SODIUM 143 mmol/L (136-145); TOTAL PROTEIN 6.6 gm/dL (6.4-8.2); TRIGLYCERIDES 65 mg/dl (<150); VLDL CHOLESTEROL 13 mg/dL (6-40)
[2018-01-03 06:10] LABS: ALKALINE PHOSPHATASE 61 U/L (45-117); HDL CHOLESTEROL 76 mg/dl (40-60); LDL CHOLESTEROL 75 mg/dL (9-159); VALPROIC ACID (DEPAKENE) 115.6 ug/ml (50-100)
[2018-01-03 07:41] VITALS: BP 148/80
[2018-01-03 20:03] VITALS: BP 148/84
[2018-01-04 07:59] VITALS: BP 139/79
[2018-01-04 20:00] VITALS: BP 129/80
[2018-01-05 07:59] VITALS: BP 122/78
[2018-01-05 20:00] VITALS: BP 115/65
[2018-01-06 07:36] VITALS: BP 142/76
[2018-01-06 19:59] VITALS: BP 132/68
[2018-01-07 07:52] VITALS: BP 118/86
[2018-01-07] MEDS ORDERED: PALIPERIDONE ER6 MG PO (09:04)
[2018-01-07] MEDS ORDERED: THORAZINE25 MG PO (09:04)
[2018-01-07] MEDS ORDERED: LACTULOSE20 GM/30 M PO (09:04)
[2018-01-07] MEDS ORDERED: LORAZEPAM1 MG PO (09:04)
== END 2018-01-07 13:18 | disposition other institution (70) | DRG 885 ==
LOC: 3N 19:52
PROVIDERS: Psychiatry & Neurology Psychiatry
DX: F25.9 Schizoaffective disorder, unspecified (principal); N17.0 Acute kidney failure with tubular necrosis; K72.90 Hepatic failure, unspecified without coma; E86.0 Dehydration; I50.9 Heart failure, unspecified; F79 Unspecified intellectual disabilities; K80.20 Calculus of gallbladder without cholecystitis without obstruction; F41.9 Anxiety disorder, unspecified; R73.03 Prediabetes; F31.9 Bipolar disorder, unspecified; E66.9 Obesity, unspecified; E55.9 Vitamin D deficiency, unspecified; Z82.5 Family history of asthma and other chronic lower respiratory diseases; Z68.39 Body mass index [BMI] 39.0-39.9, adult